=== PATIENT | female | born 1985 | race Hispanic/Latino ===

== ENCOUNTER 2023-10-18 04:53 | Emergency (ER) | payer MEDICAID ==
[2023-10-18] MEDS ORDERED: Morphine 4 MG/ML VIAL ONE (05:26)
[2023-10-18] MEDS ORDERED: Morphine 2 MG/ML VIAL ONE (05:26)
[2023-10-18] MEDS ORDERED: Ondansetron ODT 4 MG TAB ONE (05:26)
== END 2023-10-18 05:35 | disposition home or self-care (01) ==
LOC: BURERS 04:53
DX: G44.209 Tension-type headache, unspecified, not intractable (principal)
CPT/HCPCS: 96372; 99283; J2270; J2272; Q0162

== ENCOUNTER 2024-06-01 20:42 | Emergency (ER) | payer MEDICAID, OTHER ==
[2024-06-01] MEDS ORDERED: Ibuprofen 200 MG TAB ONE (21:11)
== END 2024-06-01 22:11 | disposition home or self-care (01) ==
LOC: BURERS 20:42
DX: S62.620A Displaced fracture of middle phalanx of right index finger, initial encounter for closed fracture (principal); W18.30XA Fall on same level, unspecified, initial encounter
CPT/HCPCS: 99283